=== PATIENT | female | born 1965 | race Caucasian/White ===

== ENCOUNTER 2017-09-08 11:55 | Emergency (ER) | payer OTHER ==
[2017-09-08] MEDS: diphenhydrAMINE INJ 50MG/ML VIAL (J1200) IV (13:05)
[2017-09-08] MEDS: METOCLOPRAMIDE INJ 10MG/2ML VIAL (J2765) IV (13:05)
[2017-09-08] MEDS: NS 1,000 ML IV (13:05)
[2017-09-08] MEDS: KETOROLAC 30 MG/ML VIAL (J1885) IV (13:09)
[2017-09-08] MEDS: methylPREDNISolone INJ 125 MG/2 ML VIAL (J2930) IV (14:20)
== END 2017-09-08 15:08 | disposition home or self-care (01) ==
LOC: M ED 11:55
DX: G43.909 Migraine, unspecified, not intractable, without status migrainosus (principal)
CPT/HCPCS: J1200